=== PATIENT | female | born 1930 | race Caucasian/White ===

== ENCOUNTER 2016-06-14 17:38 | Inpatient (IN) | payer MEDICARE, BC ==
[~2016-06-14] VITALS: Ht 170.2 cm; Wt 79.7 kg
[2016-06-14] MEDS ORDERED: CEFTRIAXONE 1 GM VIAL ONE (20:26)
[2016-06-14] MEDS ORDERED: SODIUM CHLORIDE 0.9% 1,000 ML ONE (20:26)
[2016-06-14] MEDS ORDERED: SODIUM CHLORIDE 0.9% 100 ML IV ONE (20:26)
[2016-06-14] MEDS ORDERED: SALINE FLUSH 10 ML FLUSH PRN (21:30)
[2016-06-14] MEDS ORDERED: SODIUM CHLOR 0.9% W/KCL 20MEQ 1,000 ML IV SCH (21:30)
[2016-06-14] MEDS ORDERED: BISACODYL EC 5 MG TAB PO PRN (21:30)
[2016-06-14] MEDS ORDERED: ACETAMINOPHEN 325 MG TAB PO PRN (21:30)
[2016-06-14] MEDS ORDERED: ONDANSETRON 4 MG VIAL IV PRN (21:30)
[2016-06-14] MEDS ORDERED: MAG HYDROX 30 ML UDC PO PRN (21:30)
[2016-06-14] MEDS ORDERED: BISACODYL 10 MG SUPP RECTAL PRN (21:30)
[2016-06-14] MEDS ORDERED: ALU/MAG/SIM 30 ML UDC PO PRN (21:30)
[2016-06-14 22:16] VITALS: BP_SYST 157; RESP 19; TEMP 98.6
[2016-06-14 22:17] VITALS: Ht 170.2 cm; Wt 79.7 kg
[2016-06-14 23:00] VITALS: BP_SYST 157; RESP 19; TEMP 100.1
[2016-06-14 23:27] VITALS: RESP 20
[2016-06-15] VITALS (9 sets, daily range): BP systolic 139–180; RESP 19–36; TEMP 97.5–99.3
[2016-06-15] MEDS: SODIUM CHLORIDE 0.9% FLUSH BAG 500 ML IV SCH (06:00)
[2016-06-15] MEDS: PANTOPRAZOLE 40 MG TAB PO SCH (06:42)
[2016-06-15] MEDS: SALINE FLUSH 10 ML FLUSH SCH ×2 (08:49→20:00)
[2016-06-15] MEDS: CEFTRIAXONE 1 GM in SODIUM CHLORIDE 0.9% 50 ML IV SCH ×4 (08:50→09:35)
[2016-06-15] MEDS ORDERED: SODIUM CHLOR 0.9% W/KCL 20MEQ 1,000 ML IV SCH (09:00)
[2016-06-15] MEDS: DUONEB INH SCH ×4 (10:25→22:38)
[2016-06-15] MEDS: NEB-BUDESONIDE 0.5 MG INH SCH ×2 (10:25→19:15)
[2016-06-15] MEDS: GUAIFENESIN ER 600 MG TABCR PO SCH ×2 (11:03→20:51)
[2016-06-15] MEDS: amLODIPine 2.5 MG TAB PO SCH (11:03)
[2016-06-15] MEDS: DOCUSATE SOD 100 MG CAP PO SCH ×2 (11:03→20:51)
[2016-06-15] MEDS: SODIUM CHLOR 0.9% W/KCL 20MEQ 1,000 ML IV SCH (11:03)
[2016-06-15] MEDS: METOCLOPRAMIDE 10 MG TAB PO SCH (20:51)
[2016-06-15] MEDS: PRAVASTATIN 40 MG TAB PO SCH (20:51)
[2016-06-16] VITALS (9 sets, daily range): BP systolic 131–160; RESP 18–24; TEMP 97.3–98.3
[2016-06-16] MEDS: NEB-BUDESONIDE 0.5 MG INH SCH ×2 (05:17→20:05)
[2016-06-16] MEDS: DUONEB INH SCH ×5 (05:17→23:04)
[2016-06-16] MEDS: SODIUM CHLORIDE 0.9% FLUSH BAG 500 ML IV SCH (06:00)
[2016-06-16] MEDS: PANTOPRAZOLE 40 MG TAB PO SCH (06:45)
[2016-06-16] MEDS: SODIUM CHLOR 0.9% W/KCL 20MEQ 1,000 ML IV SCH (06:46)
[2016-06-16] MEDS: amLODIPine 2.5 MG TAB PO SCH (08:47)
[2016-06-16] MEDS: GUAIFENESIN ER 600 MG TABCR PO SCH ×2 (08:47→21:24)
[2016-06-16] MEDS: METOCLOPRAMIDE 10 MG TAB PO SCH ×2 (08:47→21:24)
[2016-06-16] MEDS: ASPIRIN EC 81 MG TAB PO SCH (08:48)
[2016-06-16] MEDS: DOCUSATE SOD 100 MG CAP PO SCH ×2 (08:48→21:25)
[2016-06-16] MEDS: DIGOXIN 0.125 MG TAB PO SCH (08:48)
[2016-06-16] MEDS: SALINE FLUSH 10 ML FLUSH SCH ×2 (08:48→21:29)
[2016-06-16] MEDS: POLYETHYLENE GLYCOL 17 GM PACKET PO SCH (08:48)
[2016-06-16] MEDS ORDERED: MISSING DOSE XX ONE (20:50)
[2016-06-16] MEDS: PRAVASTATIN 40 MG TAB PO SCH (21:25)
[2016-06-16] MEDS: NITROFURANTOIN 100 MG CAP PO SCH (21:25)
[2016-06-17 03:27] VITALS: BP_SYST 159; RESP 22; TEMP 98.1
[2016-06-17] MEDS ORDERED: DUONEB INH ONE (04:04)
[2016-06-17] MEDS ORDERED: LORAZEPAM 2 MG/ML VIAL IV ONE (04:15)
[2016-06-17 04:31] VITALS: BP_SYST 148
[2016-06-17] MEDS: SODIUM CHLORIDE 0.9% FLUSH BAG 500 ML IV SCH (05:34)
[2016-06-17] MEDS: PANTOPRAZOLE 40 MG TAB PO SCH (06:06)
[2016-06-17] MEDS ORDERED: Furosemide 20 MG/2 ML VIAL IV ONE (06:45)
[2016-06-17] MEDS: NEB-BUDESONIDE 0.5 MG INH SCH (06:59)
[2016-06-17] MEDS: DUONEB INH SCH ×4 (07:00→17:12)
[2016-06-17 07:23] VITALS: BP_SYST 153; RESP 18; TEMP 98.5
[2016-06-17] MEDS: SALINE FLUSH 10 ML FLUSH SCH (07:53)
[2016-06-17] MEDS: POLYETHYLENE GLYCOL 17 GM PACKET PO SCH (09:20)
[2016-06-17] MEDS: METOCLOPRAMIDE 10 MG TAB PO SCH (09:21)
[2016-06-17] MEDS: DOCUSATE SOD 100 MG CAP PO SCH (09:21)
[2016-06-17] MEDS: NITROFURANTOIN 100 MG CAP PO SCH (09:21)
[2016-06-17] MEDS: GUAIFENESIN ER 600 MG TABCR PO SCH (09:21)
[2016-06-17] MEDS: ASPIRIN EC 81 MG TAB PO SCH (09:21)
[2016-06-17] MEDS: amLODIPine 2.5 MG TAB PO SCH (09:21)
[2016-06-17] MEDS: DIGOXIN 0.125 MG TAB PO SCH (09:23)
[2016-06-17 11:48] VITALS: BP_SYST 150; RESP 18; TEMP 98.6
[2016-06-17 15:40] VITALS: BP_SYST 176; RESP 18; TEMP 98.7
[2016-06-17 15:44] VITALS: BP_SYST 150; RESP 18; TEMP 98.6
== END 2016-06-17 17:34 | disposition home or self-care (01) | DRG 690 ==
LOC: ENRESERVDT → ENRESERVTM → ER 17:38 → ENPENDDIS 20:50 → EMR 20:50 → PCU2 21:49 → 3NT 06-16 17:42
PROVIDERS: ADMIT Internal Medicine; ATTEND Internal Medicine
CPT/HCPCS: 70450; 71010; 80048; 85610; 93005; 94640; 94799; 96361; 96365